=== PATIENT | male | born 1940 | race Caucasian/White ===

== ENCOUNTER 2018-04-12 13:30 | Inpatient (IN) ==
[2018-04-12] MEDS ORDERED: SODIUM CHLORIDE 0.9% 1,000 ML IV STA (14:37)
[2018-04-12 15:05] LABS: Basophils % 0.6 % (0.0-0.8); Eosinophils % 1.7 % (0.00-10.9); Hematocrit 35.7 VOL% (42.0-52.0); Hemoglobin 12.1 GM/DL (14.0-18.0); Lymphocytes # 0.8 10*3/uL (1.4-4.0); Lymphocytes % 46.1 % (21.2-54.2); Mean Corpuscular HGB Conc 33.9 GM/DL (32-36); Mean Corpuscular Hemoglobin 28 PG (27-34); Mean Corpuscular Volume 83.8 FL (87-102); Mean Platelet Volume 9.7 FL (9.6-12.0); Monocytes # 0.3 10*3/uL (0.11-0.8); Neutrophils # 0.7 10*3/uL (1.4-7.4); Neutrophils % 37.6 % (38.7-73.9); Red Blood Count 4.26 MC/CUMM (3.8-5.5); Red Cell Distribution Width 13.6 % (9.3-17.3); White Blood Count 1.8 T/CUMM (4-12)
[2018-04-12 15:06] LABS: Platelet Count 88 T/CUMM (130-400)
[2018-04-12 15:11] LABS: Apearance,Urine CLEAR (Clear); Bilirubin,Urine Negative (Negative); Blood, Urine Negative (Negative); Glucose,Urine (UA) Negative (Negative); Ketones,Urine Negative (Negative); Nitrite,Urine Negative (Negative); Protein,Urine Negative; RBC,Urine <1 /HPF (0-4); Urine Color Straw (Yellow); Urine Specific Gravity 1.003 (1.001-1.035); Urine Urobilinogen < 2.0 EU/DL (0.2-1.0); WBC,Urine <1 /HPF (0-6)
[2018-04-12 15:31] LABS: Band Neutrophils 4 % (0-10); Eosinophils 2 % (0-10); Lymphocytes 53 % (20-55); Segmented Neutrophils 33 % (50-85); Total Cells Counted 100
[2018-04-12 15:34] LABS: Hypochromasia Slight; Platelet Estimate Decreased
[2018-04-12 15:57] LABS: Alanine Aminotransferase 20 U/L (16-61); Albumin 3.5 G/DL (3.4-5.0); Alkaline Phosphatase 61 U/L (45-117); Aspartate Amino Transferase 25 U/L (0-37); Bilirubin,Total < 0.39 MG/DL (0.2-1.0); Blood Urea Nitrogen 13 MG/DL (7-18); Calcium 8.1 MG/DL (8.5-10.1); Glucose 89 MG/DL (74-106); Osmolality,Calculated 266.2 MOS/KG (273-304); Potassium 3.8 MMOL/L (3.5-5.1); Sodium 134 MMOL/L (136-145); Total Protein 6.8 G/DL (6.4-8.3)
[2018-04-12] MEDS ORDERED: DEXTROSE 50% 25 GM/50 ML VIAL IV PRN (17:09)
[2018-04-12] MEDS ORDERED: GLUCAGON 1 MG VIAL IM PRN (17:09)
[2018-04-12] MEDS ORDERED: BISACODYL 5 MG TABLET PO PRN (17:16)
[2018-04-12] MEDS: GABAPENTIN 100 MG CAPSULE PO SCH (21:28)
[2018-04-12] MEDS: INSULIN REGULAR 100 UNIT/ML SUBCUT SCH (21:28)
[2018-04-12] MEDS: DOCUSATE SODIUM 100 MG CAPSULE PO SCH (21:28)
[2018-04-12] MEDS: TAMSULOSIN 0.4 MG CAPSULE PO SCH (21:28)
[2018-04-13] MEDS: LEVOTHYROXINE 50 MCG TABLET PO SCH (06:09)
[2018-04-13 07:07] LABS: Eosinophils # 0.1 10*3/uL (0.0-0.87); Eosinophils % 4.4 % (0.00-10.9); Hematocrit 37.3 VOL% (42.0-52.0); Hemoglobin 12.4 GM/DL (14.0-18.0); Immature Granulocytes % 0.9 %; Immature Granulocytes Absolute 0.02 #; Lymphocytes # 1.3 10*3/uL (1.4-4.0); Lymphocytes % 56.9 % (21.2-54.2); Mean Corpuscular HGB Conc 33.2 GM/DL (32-36); Mean Corpuscular Hemoglobin 29 PG (27-34); Mean Corpuscular Volume 85.9 FL (87-102); Mean Platelet Volume 9.4 FL (9.6-12.0); Monocytes # 0.2 10*3/uL (0.11-0.8); Monocytes % 9.8 % (1.7-12.7); Neutrophils # 0.6 10*3/uL (1.4-7.4); Red Blood Count 4.34 MC/CUMM (3.8-5.5); Red Cell Distribution Width 13.7 % (9.3-17.3); White Blood Count 2.3 T/CUMM (4-12)
[2018-04-13 07:18] LABS: Platelet Count 86 T/CUMM (130-400)
[2018-04-13 07:40] LABS: Band Neutrophils 20 % (0-10); Eosinophils 9 % (0-10); Lymphocytes 34 % (20-55); Segmented Neutrophils 10 % (50-85); Total Cells Counted 100
[2018-04-13 07:43] LABS: Burr Cells Slight; Platelet Estimate Normal
[2018-04-13 07:44] LABS: Spherocytes Few
[2018-04-13 07:45] LABS: Risk Ratio 3.2; VLDL CHOLESTEROL 13.4 MG/DL
[2018-04-13 08:07] LABS: Folate > 24.0 NG/ML (5.4-24.0); Vitamin B12 418 PG/ML (211-911)
[2018-04-13 08:11] LABS: Albumin 3.3 G/DL (3.4-5.0); Bilirubin,Total 0.5 MG/DL (0.2-1.0); Calcium 8.5 MG/DL (8.5-10.1); Osmolality,Calculated 275.5 MOS/KG (273-304); Potassium 4.1 MMOL/L (3.5-5.1); Thyroid Stimulating Hormone 2.74 uIU/ml (0.358-3.74); Total Protein 7.1 G/DL (6.4-8.3)
[2018-04-13 08:11] LABS: % Iron Saturation 13.9 % (18-50); Ferritin 41.1 ng/ml (26-388); Total Protein 7.2 G/DL (6.4-8.3)
[2018-04-13] MEDS: FOLIC ACID 1 MG TABLET PO SCH (08:56)
[2018-04-13] MEDS: PANTOPRAZOLE 40 MG TABLET PO SCH (08:57)
[2018-04-13] MEDS: ONDANSETRON 4 MG/2 ML VIAL IV PRN ×2 (09:00→12:30)
[2018-04-13] MEDS: INSULIN REGULAR 100 UNIT/ML SUBCUT SCH ×4 (09:08→20:32)
[2018-04-13 11:48] LABS: Immuno Free Light Chain Kappa 6.51 MG/DL (0.33-1.94); Immuno Free Light Chain Lambda 2.94 MG/DL (0.57-2.63); Immuno Free Light Chain Ratio 2.21 MG/DL (0.26-1.65)
[2018-04-13] MEDS: BUMETANIDE 1 MG TABLET PO SCH (15:43)
[2018-04-13] MEDS: MECLIZINE 12.5 MG TABLET PO SCH ×2 (15:44→20:27)
[2018-04-13] MEDS: GABAPENTIN 100 MG CAPSULE PO SCH ×2 (17:20→20:27)
[2018-04-13] MEDS: TAMSULOSIN 0.4 MG CAPSULE PO SCH (18:24)
[2018-04-13] MEDS: DOCUSATE SODIUM 100 MG CAPSULE PO SCH (20:27)
[2018-04-14] MEDS: LEVOTHYROXINE 50 MCG TABLET PO SCH (06:02)
[2018-04-14 06:18] LABS: Basophils % 0.3 % (0.0-0.8); Eosinophils # 0.2 10*3/uL (0.0-0.87); Hematocrit 41.6 VOL% (42.0-52.0); Lymphocytes # 1.6 10*3/uL (1.4-4.0); Mean Corpuscular HGB Conc 33.7 GM/DL (32-36); Mean Corpuscular Hemoglobin 29 PG (27-34); Mean Corpuscular Volume 85.6 FL (87-102); Mean Platelet Volume 9.7 FL (9.6-12.0); Monocytes # 0.2 10*3/uL (0.11-0.8); Monocytes % 7.3 % (1.7-12.7); Neutrophils % 33.4 % (38.7-73.9); Platelet Count 105 T/CUMM (130-400); Red Blood Count 4.86 MC/CUMM (3.8-5.5); Red Cell Distribution Width 13.7 % (9.3-17.3)
[2018-04-14 06:39] LABS: Calcium 8.3 MG/DL (8.5-10.1); Potassium 3.3 MMOL/L (3.5-5.1)
[2018-04-14 06:42] LABS: Band Neutrophils 4 % (0-10); Eosinophils 5 % (0-10); Hypochromasia 1+; Lymphocytes 58 % (20-55); Ovalocytes Slight; Platelet Estimate Decreased; Segmented Neutrophils 26 % (50-85); Total Cells Counted 100
[2018-04-14 06:43] LABS: Atypical Lymphocytes Few
[2018-04-14] MEDS: MECLIZINE 12.5 MG TABLET PO SCH (08:27)
[2018-04-14] MEDS: PANTOPRAZOLE 40 MG TABLET PO SCH (08:27)
[2018-04-14] MEDS: FOLIC ACID 1 MG TABLET PO SCH (08:27)
[2018-04-14] MEDS: BUMETANIDE 1 MG TABLET PO SCH (08:27)
[2018-04-14] MEDS: INSULIN REGULAR 100 UNIT/ML SUBCUT SCH ×2 (08:27→11:44)
[2018-04-14 08:47] LABS: Albumin (SPE) 4.4 G/DL (3.2-5.3); Albumin (SPE) Rel % 61.6 %; Alpha 1 (SPE) 0.2 G/DL (0.1-0.4); Total Protein (Chem) 7.2 G/DL (6.4-8.3)
[2018-04-14 08:48] LABS: Alpha 2 (SPE) 0.8 G/DL (0.4-1.0); Alpha 2 (SPE) Rel % 11.3 %; Beta (SPE) 0.7 G/DL (0.5-1.1); Beta (SPE) Rel % 9.9 %; Gamma (SPE) Rel % 14.2 %
[2018-04-14] MEDS ORDERED: POTASSIUM CHLORIDE 20 MEQ TABLET PO ONE (10:24)
[2018-04-14 11:09] VITALS: BP 125/71
== END 2018-04-14 13:20 | disposition home or self-care (01) | DRG 312 ==
LOC: N.ED 13:30 → N.EDINP 17:06 → N.4E 18:26
PROVIDERS: ADMIT Internal Medicine; ATTEND Internal Medicine

== ENCOUNTER 2020-11-23 19:03 | Observation (INO) ==
[2020-11-23 20:56] LABS: Basophils % 0.7 % (0.0-0.8); Eosinophils # 0.6 10*3/uL (0.0-0.87); Eosinophils % 9.3 % (0.00-10.9); Hematocrit 33.9 VOL% (42.0-52.0); Hemoglobin 11.5 GM/DL (14.0-18.0); Immature Granulocytes % 0.3 %; Immature Granulocytes Absolute 0.02 #; Lymphocytes # 1.5 10*3/uL (1.4-4.0); Mean Corpuscular HGB Conc 33.9 GM/DL (32-36); Mean Corpuscular Volume 84.3 FL (87-102); Mean Platelet Volume 8.6 FL (9.6-12.0); Monocytes % 9.3 % (1.7-12.7); Neutrophils % 55.4 % (38.7-73.9); Platelet Count 164 T/CUMM (130-400); Red Blood Count 4.02 MC/CUMM (3.8-5.5); Red Cell Distribution Width 14.2 % (9.3-17.3)
[2020-11-23 21:14] LABS: INR 1.3; PT Patient Result 13.5 SECS (9.8-11.9)
[2020-11-23 21:19] LABS: Albumin 3.6 G/DL (3.4-5.0); Bilirubin,Total 0.4 MG/DL (0.2-1.0); Calcium 8.9 MG/DL (8.5-10.1); Osmolality,Calculated 260.8 MOS/KG (273-304); Potassium 4.2 MMOL/L (3.5-5.1)
[2020-11-23 21:23] LABS: Partial Thromboplastin Time 44.4 SECS (23.9-33.8)
[2020-11-24] MEDS ORDERED: ONDANSETRON 4 MG/2 ML VIAL IV PRN (00:14)
[2020-11-24] MEDS ORDERED: DEXTROSE 50% 25 GM/50 ML VIAL IV PRN ×2 (00:14→01:57)
[2020-11-24] MEDS ORDERED: GLUCAGON 1 MG VIAL IM PRN ×2 (00:14→01:57)
[2020-11-24] MEDS ORDERED: ACETAMINOPHEN 325 MG TABLET PO PRN (01:51)
[2020-11-24 07:04] LABS: Basophils % 0.7 % (0.0-0.8); Eosinophils # 0.5 10*3/uL (0.0-0.87); Hematocrit 35.2 VOL% (42.0-52.0); Immature Granulocytes % 0.4 %; Immature Granulocytes Absolute 0.02 #; Lymphocytes # 1.2 10*3/uL (1.4-4.0); Lymphocytes % 21.6 % (21.2-54.2); Mean Corpuscular HGB Conc 34.1 GM/DL (32-36); Mean Platelet Volume 8.1 FL (9.6-12.0); Monocytes % 11.5 % (1.7-12.7); Neutrophils % 56.8 % (38.7-73.9); Platelet Count 154 T/CUMM (130-400); Red Blood Count 4.19 MC/CUMM (3.8-5.5); Red Cell Distribution Width 14.4 % (9.3-17.3); White Blood Count 5.6 T/CUMM (4-12)
[2020-11-24 07:24] LABS: Albumin 3.5 G/DL (3.4-5.0); Bilirubin,Total 0.6 MG/DL (0.2-1.0); Calcium 9.3 MG/DL (8.5-10.1); Osmolality,Calculated 268.1 MOS/KG (273-304); Potassium 4.1 MMOL/L (3.5-5.1); Total Protein 8.1 G/DL (6.4-8.2)
[2020-11-24] MEDS: INSULIN REGULAR 100 UNIT/ML SUBCUT SCH ×4 (08:37→21:08)
[2020-11-24] MEDS: amLODIPine 2.5 MG TABLET PO SCH (08:49)
[2020-11-24] MEDS: RIVAROXABAN 20 MG TABLET PO SCH (08:49)
[2020-11-24] MEDS: LEVOTHYROXINE 50 MCG TABLET PO SCH (08:49)
[2020-11-24] MEDS: SOTALOL 80 MG TABLET PO SCH ×2 (08:49→20:39)
[2020-11-24] MEDS: PANTOPRAZOLE 40 MG TABLET PO SCH (08:50)
[2020-11-24] MEDS ORDERED: cefTRIAXone 1,000 MG VIAL IM SCH (10:30)
[2020-11-24] MEDS ORDERED: cefTRIAXone 2,000 MG in SYRINGE 1 EACH IV ONE (11:00)
[2020-11-24] MEDS ORDERED: TAMSULOSIN 0.4 MG CAPSULE PO SCH ×2 (19:00→21:00)
[2020-11-24] MEDS: DOXYCYCLINE HYCLATE 100 MG CAPSULE PO SCH (20:40)
[2020-11-24] MEDS ORDERED: GABAPENTIN 400 MG CAPSULE PO SCH (21:00)
[2020-11-25 06:25] LABS: Basophils # 0.1 10*3/uL (0.0-0.2); Basophils % 0.9 % (0.0-0.8); Eosinophils # 0.6 10*3/uL (0.0-0.87); Eosinophils % 11.1 % (0.00-10.9); Hematocrit 34.6 VOL% (42.0-52.0); Hemoglobin 11.3 GM/DL (14.0-18.0); Immature Granulocytes % 0.5 %; Immature Granulocytes Absolute 0.03 #; Lymphocytes # 1.4 10*3/uL (1.4-4.0); Lymphocytes % 24.8 % (21.2-54.2); Mean Corpuscular HGB Conc 32.7 GM/DL (32-36); Mean Corpuscular Volume 85.6 FL (87-102); Mean Platelet Volume 8.8 FL (9.6-12.0); Monocytes % 9.7 % (1.7-12.7); Platelet Count 162 T/CUMM (130-400); Red Blood Count 4.04 MC/CUMM (3.8-5.5); Red Cell Distribution Width 14.5 % (9.3-17.3); White Blood Count 5.7 T/CUMM (4-12)
[2020-11-25 06:35] LABS: Osmolality,Calculated 266.2 MOS/KG (273-304); Potassium 4.3 MMOL/L (3.5-5.1)
[2020-11-25] MEDS: LEVOTHYROXINE 50 MCG TABLET PO SCH (06:59)
[2020-11-25 07:08] LABS: Anisocytosis 1+; Band Neutrophils 5 % (0-10); Eosinophils 10 % (0-10); Lymphocytes 22 % (20-55); Platelet Estimate Normal; Segmented Neutrophils 51 % (50-85); Total Cells Counted 100
[2020-11-25 07:09] LABS: Macrocytosis Slight
[2020-11-25] MEDS: INSULIN REGULAR 100 UNIT/ML SUBCUT SCH (07:34)
[2020-11-25] MEDS: RIVAROXABAN 20 MG TABLET PO SCH (09:16)
[2020-11-25] MEDS: PANTOPRAZOLE 40 MG TABLET PO SCH (09:16)
[2020-11-25] MEDS: SOTALOL 80 MG TABLET PO SCH (09:16)
[2020-11-25] MEDS: amLODIPine 2.5 MG TABLET PO SCH (09:16)
[2020-11-25] MEDS: DOXYCYCLINE HYCLATE 100 MG CAPSULE PO SCH (09:17)
[2020-11-25 13:45] VITALS: BP 128/69
[2020-11-25] MEDS ORDERED: GABAPENTIN 100 MG CAPSULE PO SCH (15:00)
== END 2020-11-25 12:01 | disposition home or self-care (01) ==
LOC: N.ED 19:03 → N.EDINP 19:03 → SUATTDRO 11-24 00:14 → N.EDINP 11-24 03:00 → N.4E 11-24 03:17
PROVIDERS: ADMIT Internal Medicine; ATTEND Internal Medicine